=== PATIENT | male | born 1995 | race African-American/Black ===

== ENCOUNTER 2023-12-23 20:48 | Inpatient (IN) | payer SELFPAY ==
[~2023-12-23] VITALS: Ht 182.9 cm; Wt 87.4 kg
[2023-12-23 21:13] LABS: BASO % 0.1 % (0.0-1.0); HEMATOCRIT 53.5 % (42.0-52.0); HEMOGLOBIN 17.5 g/dl (13.5-17.5); LYMPH # 1.6 10^3/uL (1.5-5.0); LYMPH % 8.1 % (24.0-44.0); MEAN CORPUSCULAR HEMOGLOBIN 27.7 pg (27.0-33.0); MEAN CORPUSCULAR HGB CONC 32.7 g/dl (32.0-36.5); MEAN CORPUSCULAR VOLUME 84.7 fl (80.0-96.0); MONO # 0.7 10^3/uL (0.0-0.8); MONO % 3.6 % (2.0-8.0); NEUTROPHILS # 17.6 10^3/uL (1.5-8.5); NEUTROPHILS % 87.8 % (36.0-66.0); PLATELET COUNT, AUTOMATED 425 10^3/uL (150-450); RED BLOOD COUNT 6.32 10^6/uL (4.30-6.10); WHITE BLOOD COUNT 20.1 10^3/uL (4.0-10.0)
[2023-12-23 21:43] LABS: ETHYL ALCOHOL (ETHANOL) 0.003 % (0.000-0.010)
[2023-12-23 21:45] LABS: SALICYLATE LEVEL < 3.0 MG/DL (<30)
[2023-12-23 21:48] LABS: THYROID STIMULATING HORMONE 0.243 uIU/ML (0.55-4.78)
[2023-12-23 21:53] LABS: ALBUMIN 4.1 G/DL (3.2-5.2); ALKALINE PHOSPHATASE 101 U/L (46-116); ALT/SGPT 79 U/L (7.0-40); AST/SGOT 73 U/L (<34); BILIRUBIN,DIRECT 0.1 MG/DL (<0.4); BILIRUBIN,TOTAL 0.3 MG/DL (0.3-1.2); BLOOD UREA NITROGEN 13 MG/DL (9-23); CALCIUM LEVEL 10.4 MG/DL (8.5-10.1); CARBON DIOXIDE LEVEL 19 MMOL/L (20-31); CHLORIDE LEVEL 101 MMOL/L (98-107); CPK CREATINE PHOSPHOKINASE 759 U/L (46-171); CREATININE FOR GFR 0.96 MG/DL (0.70-1.30); GLOMERULAR FILTRATION RATE > 60.0 (>60); GLUCOSE, FASTING 184 MG/DL (60-100); POTASSIUM SERUM 4.3 MMOL/L (3.5-5.1); SODIUM LEVEL 138 MMOL/L (136-145); TOTAL PROTEIN 9.1 G/DL (5.7-8.2)
[2023-12-23] MEDS: NS 1,000 ML IV ONE ×2 (22:05→23:45)
[2023-12-23] MEDS: METOCLOPRAMIDE INJ 10MG/2ML VIAL IV ONE (22:09)
[2023-12-23 23:11] LABS: FREE T4 1.22 NG/DL (0.89-1.76)
[2023-12-23 23:51] LABS: VENOUS BASE EXCESS -1.3 (-2.0-2.0); VENOUS HCO3 20.5 MMOL/L (23.0-27.0); VENOUS O2 SATURATION 96.8 % (60.0-80.0); VENOUS PARTIAL PRESSURE O2 80.6 mmHg (30.0-50.0); VENOUS PH 7.482 UNITS (7.330-7.430); VENOUS STANDARD HCO3 23.4 MMOL/L; VENOUS TOTAL CO2 21.3 MMOL/L (24.0-28.0)
[2023-12-24 00:13] LABS: BARBITURATES URINE NEGATIVE (NEGATIVE); BENZODIAZEPINES URINE NEGATIVE (NEGATIVE); COCAINE METABOLITE URINE NEGATIVE (NEGATIVE); METHADONE URINE NEGATIVE (NEGATIVE)
[2023-12-24 00:14] LABS: AMPHETAMINES LEVEL URINE POSITIVE (NEGATIVE); CANNABINOIDS URINE NEGATIVE (NEGATIVE); OPIATES URINE NEGATIVE (NEGATIVE); PHENCYCLIDINE URINE NEGATIVE (NEGATIVE)
[2023-12-24 01:07] LABS: BLOOD UREA NITROGEN 13 MG/DL (9-23); CALCIUM LEVEL 10.4 MG/DL (8.5-10.1); CARBON DIOXIDE LEVEL 26 MMOL/L (20-31); CHLORIDE LEVEL 102 MMOL/L (98-107); CPK CREATINE PHOSPHOKINASE 1116 U/L (46-171); CREATININE FOR GFR 0.96 MG/DL (0.70-1.30); GLOMERULAR FILTRATION RATE > 60.0 (>60); GLUCOSE, FASTING 165 MG/DL (60-100); POTASSIUM SERUM 3.7 MMOL/L (3.5-5.1); SODIUM LEVEL 139 MMOL/L (136-145)
[2023-12-24] MEDS: ONDANSETRON 4MG 2ML VIAL IV ONE (02:35)
[2023-12-24] MEDS ORDERED: ISOVUE-370 76% 100ML VIAL As Ordered ONE (04:40)
[2023-12-24] MEDS ORDERED: HOME MED LIST COMPLETE! XX SCH (04:50)
[2023-12-24] MEDS: NS 1,000 ML IV SCH (07:26)
[2023-12-24 07:42] LABS: BASO % 0.2 % (0.0-1.0); HEMATOCRIT 49.8 % (42.0-52.0); HEMOGLOBIN 16.7 g/dl (13.5-17.5); LYMPH # 1.8 10^3/uL (1.5-5.0); LYMPH % 7.8 % (24.0-44.0); MEAN CORPUSCULAR HEMOGLOBIN 27.3 pg (27.0-33.0); MEAN CORPUSCULAR HGB CONC 33.5 g/dl (32.0-36.5); MEAN CORPUSCULAR VOLUME 81.5 fl (80.0-96.0); MONO # 1.2 10^3/uL (0.0-0.8); MONO % 5.1 % (2.0-8.0); NEUTROPHILS # 19.8 10^3/uL (1.5-8.5); NEUTROPHILS % 86.5 % (36.0-66.0); PLATELET COUNT, AUTOMATED 407 10^3/uL (150-450); RED BLOOD COUNT 6.11 10^6/uL (4.30-6.10); WHITE BLOOD COUNT 22.9 10^3/uL (4.0-10.0)
[2023-12-24] MEDS ORDERED: ACETAMINOPHEN 325 MG TAB PO PRN (08:30)
[2023-12-24] MEDS ORDERED: DOXYCYCLINE HYCLATE 100MG TABLET PO SCH (09:00)
[2023-12-24] MEDS: PROMETHAZINE 25MG/ML 1ML VIAL IV ONE (09:04)
[2023-12-24] MEDS: NS 1,000 ML IV ONE (09:45)
[2023-12-24 11:07] LABS: ALBUMIN 3.8 G/DL (3.2-5.2); ALKALINE PHOSPHATASE 95 U/L (46-116); ALT/SGPT 66 U/L (7.0-40); AST/SGOT 56 U/L (<34); BILIRUBIN,TOTAL 0.3 MG/DL (0.3-1.2); BLOOD UREA NITROGEN 12 MG/DL (9-23); CARBON DIOXIDE LEVEL 29 MMOL/L (20-31); CHLORIDE LEVEL 103 MMOL/L (98-107); CREATININE FOR GFR 0.97 MG/DL (0.70-1.30); GLOMERULAR FILTRATION RATE > 60.0 (>60); GLUCOSE, FASTING 156 MG/DL (60-100); POTASSIUM SERUM 3.4 MMOL/L (3.5-5.1); SODIUM LEVEL 141 MMOL/L (136-145); TOTAL PROTEIN 8.3 G/DL (5.7-8.2)
[2023-12-24 11:55] LABS: PROCALCITONIN 0.12 ng/ml
[2023-12-24] MEDS ORDERED: cefTRIAXone SOD 1 GM in D5W MINI-BAG PLUS 50 ML IV SCH (12:00)
[2023-12-24 12:30] VITALS: BP 124/60; TEMP 99.6
[2023-12-24 12:45] VITALS: O2SAT 99
[2023-12-24] MEDS ORDERED: PROCHLORPERAZINE 5MG TAB PO PRN (13:00)
== END 2023-12-24 13:06 | disposition left against medical advice (07) | DRG 816 ==
LOC: M ED 20:48 → EDBD 20:48 → M ED INP 12-24 11:07
PROVIDERS: ADMIT Student in an Organized Health Care Education/Training Program; ATTEND Student in an Organized Health Care Education/Training Program
DX: T40.1X2A Poisoning by heroin, intentional self-harm, initial encounter (principal); K56.609 Unspecified intestinal obstruction, unspecified as to partial versus complete obstruction; M62.82 Rhabdomyolysis; K56.7 Ileus, unspecified; J45.909 Unspecified asthma, uncomplicated; F17.210 Nicotine dependence, cigarettes, uncomplicated